=== PATIENT | male | born 1955 | race Caucasian/White ===

== ENCOUNTER 2017-04-12 05:17 | Inpatient (IN) | payer OTHER ==
[~2017-04-12] VITALS: Ht 175.3 cm; Wt 121.6 kg
[2017-04-12] VITALS (10 sets, daily range): BP systolic 116–159; BP diastolic 66–82
[~2017-04-12 05:17] MED LIST: ASPIRIN325 MG PO; COMBIGAN O20 DROP/5 RIGHT EYE; COZAAR25 MG PO; LOPRESSOR25 MG PO; LUMIGAN 0.50 DROP/22 BOTH EYES; NICOTINE PATCH TD; NICOTINE PATCH1 EAC2 TD; PRAVACHOL40 MG PO; TRUSOPT5 ML RIGHT EYE
[2017-04-12 09:35] LABS: HEMATOCRIT 45.3 % (38.0-50.0); MCH 30.3 PG (29.0-34.0); MCHC 33.1 G/DL (30.0-36.0); MCV 91.5 FL (86-99); MEAN PLAT.VOLUME 10.5 uM^3 (9.0-12.4); PLATELET COUNT 141 K/uL (156-360); RBC DIS.WIDTH-CV 13.3 % (11.8-14.6); RBC DIS.WIDTH-SD 45.2 % (39-53); RED BLOOD COUNT 4.95 M/uL (4.00-5.50); WHITE BLOOD COUNT 7.4 K/uL (4.1-10.2)
[2017-04-12 10:30] LABS: ANION GAP 8 MEQ/L (2-14); CHLORIDE 106 MEQ/L (99-109); CREATINE KINASE 95 IU/L (1-294); GFR ESTIMATE (CALCULATED) > 59 mL/min/; GLUCOSE 98 mg/dL (70-99); POTASSIUM 3.8 MEQ/L (3.7-5.4); SAMPLE HEMOLYSIS CHECK 0; SAMPLE ICTERIC CHECK 0; SAMPLE LIPEMIA CHECK 0; SODIUM 142 MEQ/L (136-147); TOTAL CK 95 IU/L (1-294); UREA NITROGEN (BUN) 13 mg/dL (9-23)
[2017-04-12 10:51] LABS: CK-MB 1.8 ng/mL (0.0-4.9)
[2017-04-12] MEDS ORDERED: HYDROCODON-ACE1 EAC7 PO (11:42)
[2017-04-12 15:17] LABS: METH RESISTANT S AUREUS PCR NEGATIVE (NEGATIVE)
[2017-04-12 15:50] LABS: PROBE CHECK PASS; SPECIMEN PROCESSING CONTROL PASS
[2017-04-13] VITALS: BP 122/57
[2017-04-13 04:00] VITALS: BP 123/66
[2017-04-13 06:14] LABS: HEMATOCRIT 47.3 % (38.0-50.0); MCH 29.3 PG (29.0-34.0); MCHC 32.1 G/DL (30.0-36.0); MCV 91.1 FL (86-99); MEAN PLAT.VOLUME 10.4 uM^3 (9.0-12.4); PLATELET COUNT 167 K/uL (156-360); RBC DIS.WIDTH-SD 44.2 % (39-53); RED BLOOD COUNT 5.19 M/uL (4.00-5.50)
[2017-04-13 06:17] LABS: WHITE BLOOD COUNT 10.5 K/uL (4.1-10.2)
[2017-04-13 06:48] LABS: ANION GAP 6 MEQ/L (2-14); CHLORIDE 104 MEQ/L (99-109); CREATINE KINASE 77 IU/L (1-294); GFR ESTIMATE (CALCULATED) > 59 mL/min/; GLUCOSE 102 mg/dL (70-99); SAMPLE HEMOLYSIS CHECK 0; SAMPLE ICTERIC CHECK 0; SAMPLE LIPEMIA CHECK 0; SODIUM 140 MEQ/L (136-147); TOTAL CK 77 IU/L (1-294); UREA NITROGEN (BUN) 11 mg/dL (9-23)
[2017-04-13 06:56] LABS: POTASSIUM 4.6 MEQ/L (3.7-5.4)
[2017-04-13 07:35] LABS: CK-MB 1.5 ng/mL (0.0-4.9)
[2017-04-13 08:00] VITALS: BP 134/69
[2017-04-13] MEDS ORDERED: ZOFRAN4 MG PO (08:58)
== END 2017-04-13 09:55 | disposition home or self-care (01) | DRG 269 ==
LOC: 2SOUTH → 4WEST 05:17 → 2SOUTH 09:33 → 4WEST 10:58 → 2SOUTH 14:17 → 4WEST 04-13 09:55
PROVIDERS: Surgery
PROC: 04V04DZ Restriction of Abdominal Aorta with Intraluminal Device, Percutaneous Endoscopic Approach (ICD-10-PCS; principal; 2017-04-12)
DX: I71.4 Abdominal aortic aneurysm, without rupture (principal); I25.10 Atherosclerotic heart disease of native coronary artery without angina pectoris; E66.9 Obesity, unspecified; F17.210 Nicotine dependence, cigarettes, uncomplicated; E78.5 Hyperlipidemia, unspecified; H40.9 Unspecified glaucoma; M19.90 Unspecified osteoarthritis, unspecified site; Z68.39 Body mass index [BMI] 39.0-39.9, adult; I25.2 Old myocardial infarction; Z86.73 Personal history of transient ischemic attack (TIA), and cerebral infarction without residual deficits; Z95.5 Presence of coronary angioplasty implant and graft
CPT/HCPCS: 80048; 82550; 82553; 85027; 87641; 93005; 94640; 94799; C1725; C1760; C1769; C1894; J0690; J1100; J1170; J1644; J1650; J2250; J2405; J2710; J2720; J3010; J7120